=== PATIENT | male | born 1950 | race American Indian/Alaskan Native ===

== ENCOUNTER 2016-09-07 13:05 | Emergency (ER) | payer MEDICARE ==
[2016-09-07 13:48] VITALS: BP 111/71
--- NOTE | 2016-09-07 14:59 | Emergency Department Report ---
Chief Complaint: Extremity Injury, Lower Stated Complaint: RT KNEE/CHEST PAIN Time Seen by Provider: 09/07/16 14:55 - HPI History of Present Illness: 65y/o male complain of right knee pain x 4 days .pt denies any traumatic injury.no edema noted .pt state he took hydrocodone with relief.pt also complain of intermittent chest pain .pt denies any chest pain at present . - ROS Review of Systems: per HPI - Exam Vital Signs: Vital Signs 09/07/16 13:43 Temperature 98.3 F Pulse Rate 74 Respiratory 16 Rate Blood Pressure 111/71 O2 Sat by Pulse 98 Oximetry Physical Exam: GENERAL: The patient is well-developed and well-nourished. Patient is in NAD. HENT: Normocephalic. Atraumatic. Patient has moist mucous membranes. Throat: No erythema, swelling or exudates. EYES: Extraocular motions are intact, PERRL NECK: Supple. No meningitic signs are noted. There is no adenopathy noted. CHEST/LUNGS: Clear to auscultation bilaterally. No wheezing, rales or rhonchi noted. There is no respiratory distress noted. HEART/CARDIOVASCULAR: Regular rate and rhythm. Normal S1 S2. No murmurs, rubs , clicks, or gallops. ABDOMEN: Abdomen is soft, nontender.. Bowel sounds normoactive. There is no abdominal distention. Negative rebound tenderness. : Deferred. SKIN: There is no rash. There is no edema. There is no diaphoresis. NEURO: The patient is A&Ox3. The patient has no focal neurologic deficits. MUSCULOSKELETAL: There is no tenderness or deformity. There is no limitation range of motion. PSYCH: Pt has appropriate mood and affect. MSE screening note: Focused history and physical exam performed. Due to findings the following was ordered: ED Disposition for MSE Condition: Stable
[2016-09-07 15:20] LABS: Basophils % (Auto) 1.2 % (0.0-1.8); Eosinophils % (Auto) 4.9 % (0.0-4.3); Hematocrit 43.5 % (35.5-45.6); Hemoglobin 14.1 gm/dl (11.8-15.2); Mean Corpuscular HGB Conc 33 % (32-34); Mean Corpuscular Hemoglobin 28 pg (28-32); Mean Corpuscular Volume 85 fl (84-94); Platelet Count 205 K/mm3 (140-440); Red Blood Count 5.12 M/mm3 (3.65-5.03); Red Cell Distribution Width 13.4 % (13.2-15.2); White Blood Count 6.8 K/mm3 (4.5-11.0)
[2016-09-07 15:38] LABS: Creatine Kinase MB 1.6 ng/mL (0.0-4.0)
[2016-09-07 15:39] LABS: Alanine Aminotransferase 11 units/L (7-56); Albumin 4.1 g/dL (3.9-5); Albumin/Globulin Ratio 1.2 %; Alkaline Phosphatase 87 units/L (35-129); Anion Gap 21 mmol/L; BUN/Creatinine Ratio 17.85; Bilirubin,Total 0.5 mg/dL (0.1-1.2); Blood Urea Nitrogen 25 mg/dL (9-20); Carbon Dioxide 25 mmol/L (22-30); Chloride 96.7 mmol/L (98-107); Glucose 171 mg/dL (75-100); Potassium 4.8 mmol/L (3.6-5.0); Sodium 138 mmol/L (137-145); Total Protein 7.4 g/dL (6.3-8.2)
[2016-09-07 15:40] LABS: Creatine Kinase 106 units/L (55-170)
--- NOTE | 2016-09-08 14:26 | ED Elopement Review ---
ED Pt Elopement review - Results review Lab results: Laboratory Tests 09/07/16 09/07/16 09/07/16 15:07 15:07 15:07 WBC 6.8 RBC 5.12 H Hgb 14.1 Hct 43.5 MCV 85 MCH 28 MCHC 33 RDW 13.4 Plt Count 205 Lymph % (Auto) 23.9 [place] % (Auto) 11.4 H Eos % (Auto) 4.9 H Baso % (Auto) 1.2 Lymph # 1.6 [place] # 0.8 Eos # 0.3 Baso # 0.1 Seg Neutrophils % 58.6 Seg Neutrophils # 4.0 Sodium 138 Potassium 4.8 Chloride 96.7 L Carbon Dioxide 25 Anion Gap 21 BUN 25 H Creatinine 1.4 Estimated GFR > 60 BUN/Creatinine Ratio 17.85 Glucose 171 H Calcium 11.0 H Total Bilirubin 0.5 AST 13 ALT 11 Alkaline Phosphatase 87 Total Creatine Kinase 106 CK-MB (CK-2) 1.6 CK-MB (CK-2) Rel Index 1.5 Troponin T < 0.010 Total Protein 7.4 Albumin 4.1 Albumin/Globulin Ratio 1.2 - Call Back decision Pt Call Back Decision: No action required
== END 2016-09-07 19:30 | disposition left against medical advice (07) ==
LOC: ED 13:05
DX: M25.561 Pain in right knee (principal); R07.89 Other chest pain; Z53.21 Procedure and treatment not carried out due to patient leaving prior to being seen by health care provider
CPT/HCPCS: 36415; 80053; 82550; 82553; 84484; 85025; 93005; 93010